=== PATIENT | female | born 1960 | race Caucasian/White ===

== ENCOUNTER 2018-08-24 09:46 | Emergency (ER) | payer OTHER | END 2018-08-24 11:14 | disposition home or self-care (01) | LOC: E/R 09:46 | DX: F41.9 Anxiety disorder, unspecified (principal) | CPT/HCPCS: 99283; Z7502 ==

== ENCOUNTER 2018-09-17 23:06 | Emergency (ER) | payer OTHER ==
[2018-09-18] MEDS ORDERED: LORAZEPAM 2 MG INJ IV (00:30)
== END 2018-09-18 00:20 | disposition left against medical advice (07) ==
LOC: E/R 23:06
DX: R00.2 Palpitations (principal)
CPT/HCPCS: 93005; 99284-25